=== PATIENT | male | born 1995 | race Caucasian/White ===

== ENCOUNTER 2017-04-01 03:09 | Emergency (ER) | payer BC ==
[~2017-04-01] VITALS: Ht 182.9 cm; Wt 84.9 kg
[2017-04-01 03:16] VITALS: TEMP 36.9; Ht 182.9 cm; Wt 84.9 kg
[2017-04-01 03:25] VITALS: O2SAT 97
[2017-04-01 03:48] LABS: BUN/CREATININE RATIO 14.6 (10-20); CALCIUM 8.6 mg/dl (8.5-10.1); CREATININE 1.2 mg/dl (0.60-1.40); POTASSIUM 3.3 mmol/L (3.5-5.1)
--- NOTE | 2017-04-01 07:29 | EMERGENCY ROOM VISIT NOTE ---
History First contact with patient: 03:14 Chief Complaint: ALCOHOL OVERDOSE Stated Complaint: ALCOHOL OVERDOSE Nursing Triage Summary: [facility] pbt .[id number]. Patient cooperative on arrival has no c/c. History of Present Illness The patient is a 22 year old male who presents to the Emergency Room via BLS for evaluation of a probable alcohol overdose. History is somewhat limited secondary to intoxicated state. Per EMS, the patient was found at [facility] and appeared to be very intoxicated. The patient does admit to drinking alcohol tonight and is unsure what he was drinking. He denies any drug use or trauma. The patient has no complaints at this time. He has not been vomiting. Review of Systems A complete 10 point review of systems was reviewed with the patient with pertinent positives and negatives as per history of present illness. All else were negative. Family History Diabetes mellitus Social History Smoking Status: Never Smoker Alcohol Use: occasionally Marital Status: single Housing Status: lives with roommate Occupation Status: [employer] student Current/Historical Medications No Active Prescriptions or Reported Meds Physical Exam Vital Signs Date Time Temp Pulse Resp B/P (MAP) Pulse Ox O2 Delivery O2 Flow Rate FiO2 04/01/17 10:09 101 18 166/95 97 Room Air 04/01/17 07:38 108 18 147/100 93 Room Air 04/01/17 05:49 108 118/70 93 04/01/17 05:44 102 91 04/01/17 05:14 111 93 04/01/17 05:01 115/73 04/01/17 04:44 118 23 99 04/01/17 04:39 121 27 98 04/01/17 04:31 118/70 04/01/17 04:17 134/73 04/01/17 03:39 114 13 04/01/17 03:25 97 Room Air 04/01/17 03:23 125 04/01/17 03:16 36.9 130 18 181/97 97 Room Air 04/01/17 03:13 181/97 Physical Exam VITALS: Vitals are noted on the nurse's note and reviewed by myself. Vital signs stable. GENERAL: This is a 22-year-old male, resting prone in bed, appears to be visibly intoxicated, smells of ETOH. SKIN: The skin was without erythema, edema, or bruising. HEAD: Normocephalic atraumatic. EARS: External auditory canals clear. No hemotympanum. EYES: Pupils equal round and reactive to light and accommodation. NOSE: No deformities noted. MOUTH: No loose or chipped teeth. NECK: No cervical spine tenderness. HEART: Regular rate and rhythm without murmurs gallops or rubs. LUNGS: Clear to auscultation bilaterally without wheezes, rales or rhonchi. ABDOMEN: Soft, nontender. MUSCULOSKELETAL: Full range of motion throughout. Strength intact throughout. NEURO: Patient was alert and oriented to person place and time. Speech slurred. Gross sensation intact. Patient cooperative with examiner. Medical Decision & Procedures Laboratory Results 04/01/17 03:16 Test 04/01/17 03:16 Anion Gap 9.0 mmol/L (3-11) Est Creatinine Clear Calc Drug Dose 105.1 ml/min Estimated GFR () 98.2 Estimated GFR (Non- 84.7 BUN/Creatinine Ratio 14.6 (10-20) Calcium Level 8.6 mg/dl (8.5-10.1) Ethyl Alcohol mg/dL 325.0 mg/dl (0-3) Medical Decision Differential diagnosis includes alcohol intoxication, drug use, infection, hypoglycemia, head trauma, among others. The patient is a 22-year-old male who presents today for evaluation of probable alcohol intoxication. Labs revealed an alcohol of 325. Kidney function was found to be within normal limits. Labs were otherwise unremarkable. There is no evidence of head trauma or infection on exam. The patient was placed on the lunchroom monitor and placed in the prone position. They were monitored for an appropriate amount of time and when they were more sober, they were reassessed and discharged home in a taxi. The patient was advised not to drink anymore alcohol today and to follow-up with [facility] for any further concerns. Medication Reconcilliation Current Medication List: was personally reviewed by me Blood Pressure Screening Patient's blood pressure: Normal blood pressure Impression Primary Impression: Alcoholic intoxication Departure Information Dispostion Home / Self-Care Condition GOOD Prescriptions No Active Prescriptions or Reported Meds Referrals No Doctor, Assigned (PCP) Patient Instructions [facility]: [employer] Students and Alcohol Related Visits, [facility] Additional Instructions You were evaluated in emergency department for intoxication. This is a sign of Alcohol Abuse and should not be taken lightly. You had a blood alcohol level that was significantly elevated. Over the next 24 hours keep well hydrated and eat light meals. Don't drink any more alcohol. This is important. Please discuss this visit with your Primary Care Provider, [facility] and/or your loved ones. Unless an exceptional circumstance, the Hospital DOES NOT contact anyone during your visit, nor is your Protected Medical Information released to anyone without your approval/request. This means we do not contact your Parents, the Police, [facility], etc. However, you will likely receive a bill from the Hospital and/or your Insurance company, which will usually be sent to the Primary Policy Pires (often one's Parents) If your incident was on campus, or if the Police were involved, they will often contact the University to make them aware of what happened. Often this will result in you being required to take Alcohol Education classes (ie BASICS class) . Please see information given to you at discharge regarding contact for this. If the Police were involved you will likely be cited for public intoxication. Please contact either [facility] Police or the [place] Police for further information. Call 911 or return to Emergency Department if you develop: Passing out, difficulty breathing, many episodes of vomiting, blood in vomit or stool, abdominal pain, fevers, or other severe symptoms. We are always here to help if you feel you need further evaluation or treatment. Problem Qualifiers Primary Impression: Alcoholic intoxication Complication of substance-induced condition: uncomplicated Qualified Codes: F10.920 - Alcohol use, unspecified with intoxication, uncomplicated
[2017-04-01 10:09] VITALS: BP 166/95; PULSE 101; O2SAT 97
== END 2017-04-01 10:40 | disposition home or self-care (01) ==
LOC: EDBD 03:09 → C.EDA 03:10
DX: F10.920 Alcohol use, unspecified with intoxication, uncomplicated (principal); Y90.8 Blood alcohol level of 240 mg/100 ml or more